=== PATIENT | female | born 1945 | race Two or more races ===

== ENCOUNTER 2024-05-18 19:03 | Emergency (ER) | payer OTHER ==
[~2024-05-18] VITALS: Ht 162.6 cm; Wt 46.3 kg
[2024-05-18] MEDS ORDERED: XANAX1 MG PO (19:35)
[2024-05-18 21:33] LABS: HEMATOCRIT 33.2 % (36.0-45.00); HEMOGLOBIN 11.6 g/dL (12.0-15.00); MEAN CORPUSCULAR HEMOGLOBIN 30.1 pg (27.00-32.0); PLATELET COUNT 260 K/uL (150-450); RED BLOOD COUNT 3.86 M/uL (4.00-6.00); RED CELL DISTRIBUTION WIDTH 13.1 % (11.5-14.5)
[2024-05-18 21:48] LABS: INR 1.05; PROTHROMBIN TIME 11.4 SECONDS (9.0-11.5)
[2024-05-18 21:53] LABS: ALBUMIN 4.1 gm/dL (3.4-5.0); BILIRUBIN TOTAL 0.79 mg/dL (0.3-1.2); CALCIUM 9.6 mg/dL (8.5-10.1); GFR 53.76; GLOBULINA 3.7 G/DL (2.4-3.5); POTASSIUM 3.88 mEq/L (3.5-5.1); TOTAL PROTEIN 7.8 gm/dL (6.4-8.2)
== END 2024-05-18 22:02 | disposition home or self-care (01) ==
LOC: ER 19:04
PROVIDERS: General Practice
DX: I10 Essential (primary) hypertension (principal); G89.11 Acute pain due to trauma